=== PATIENT | female | born 1950 | race Caucasian/White ===

== ENCOUNTER → 2017-03-24 | Outpatient (CLI) | payer BC ==
[~2017-03-24] MED LIST: CEFTAZIDIME1 GM IV; CLONAZEPAM 0.50.5 M1 PO; COREG12.5 MG PO; DYMISTA NASAL S23 GM NASAL; ESTRADIOL/TESTOSTERO VAG; MUCINEX600 MG PO; TOBRAMYCIN; XOPENEX HFA15 GM INH
[2017-03-24 11:50] VITALS: BP 140/79
[2017-03-24 12:00] VITALS: BP 140/79
[2017-03-24 12:44] LABS: HEMATOCRIT 41.6 % (37.0-47.0); HEMOGLOBIN 14.2 gm/dL (12.0-15.0); MCH 31.5 pg (26.0-34.0); MCHC 34.2 g/dL (28.0-37.0); MCV 92.2 fL (80.0-100.0); RBC 4.52 mil/uL (4.20-5.00); RDW 13.7 % (10.5-14.5); WBC 6.6 thou/uL (4.0-11.0)
[2017-03-24 13:19] LABS: CREATININE 0.6 mg/dL (0.6-1.0); POTASSIUM 3.7 mmol/L (3.5-5.1); TOTAL BILIRUBIN 0.4 mg/dL (<0.1-1.0); TOTAL PROTEIN 7.1 g/dL (6.4-8.2)
[2017-03-24 13:20] LABS: ALBUMIN 3.6 g/dL (3.4-5.0); CALCIUM 9.1 mg/dL (8.5-10.1)
== END ==
LOC: OPONC 10:29
PROVIDERS: Specialist
DX: J32.9 Chronic sinusitis, unspecified (principal); J47.9 Bronchiectasis, uncomplicated; A49.8 Other bacterial infections of unspecified site
CPT/HCPCS: 27000; 95000